=== PATIENT | male | born 1960 | race Caucasian/White ===

== ENCOUNTER 2018-05-24 08:40 | Inpatient (IN) ==
[2018-05-24 09:31] LABS: VENOUS PH 7.34 (7.32-7.42)
[2018-05-24 09:34] LABS: BASOPHILS # (AUTO) 0.06 10*3/UL; BASOPHILS % (AUTO) 0.7 % (0-1); EOSINOPHILS # (AUTO) 0.09 10*3/UL; EOSINOPHILS % (AUTO) 1.1 % (0-8); Hematocrit [HCT] 63.9 % (42.0-52.0); Hemoglobin [HGB] 19.5 g/dL (14.0-18.0); LYMPHOCYTES # (AUTO) 1.77 10*3/uL; MEAN CORPUSCULAR HEMOGLOBIN 28.1 PG (27-31); MEAN CORPUSCULAR HGB CONC 30.5 g/dL (33-37); MEAN CORPUSCULAR VOLUME 92.2 FL (80-90); MEAN PLATELET VOLUME 10.5 FL (7.4-12.2); MONOCYTES # (AUTO) 0.97 10*3/UL (0.3-0.8); MONOCYTES % (AUTO) 11.4 % (5-15); NEUTROPHILS # (AUTO) 5.63 10*3/UL; NEUTROPHILS % (AUTO) 65.9 % (50-80); RED BLOOD COUNT 6.93 10^6/uL (4.70-6.10)
[2018-05-24 09:36] LABS: PLATELET MORPHOLOGY COMMENT NORMAL MORPHOLOGY (NORM); RBC MORPHOLOGY COMMENT NORMAL MORPHOLOGY (NORM); WBC MORPHOLOGY COMMENT NORMAL MORPHOLOGY (NORM)
[2018-05-24 09:45] LABS: BLOOD UREA NITROGEN 23 mg/dL (7-22); SERUM ALBUMIN 3.3 g/dL (3.5-4.8)
--- NOTE | 2018-05-24 10:16 | DI ---
PA /LATERAL CHEST, 05/24/2018 9:25 AM : Clinical History: Dyspnea. Previous Exam: None at this facility. There is no acute soft tissue or bony abnormality. There is cardiomegaly without overt CHF. There is no acute infiltrate. There is blunting of the left costophrenic angle posteriorly and laterally eithe r representing fluid or pleural thickening. There is pulmonary arterial hypertension. Mediastinal str uctures are otherwise normal. There are no pulmonary nodules. Readin. There is no acute infiltrate. There is blunting of the left costophrenic angle either representin g fluid or pleural thickening. 2. Cardiomegaly without CHF. 3. Pulmonary arterial hypertension.
[2018-05-24 11:06] LABS: BILIRUBIN,URINE NEGATIVE (NEG); CLARITY,URINE CLEAR (CLEAR); COLOR,URINE YELLOW (Y); GLUCOSE, URINE (UA) NEGATIVE (NEG); OCCULT BLOOD,URINE NEGATIVE (NEG); PROTEIN,URINE TRACE mg/dl (NEG); UROBILINOGEN,URINE 0.2 EU/dL (0.2)
[2018-05-24 11:07] LABS: URINE SAMPLE TYPE VOIDED SPECIMEN
--- NOTE | 2018-05-24 11:33 | EKG ---
[address] [place] [address] Measurements Intervals [place] Rate: 69 P: 73 [place]: 172 QRS: -79 QRSD: 100 T: 65 QT: 391 QTc: 410 Interpretive Statements SINUS RHYTHM POSSIBLE LEFT ATRIAL ENLARGEMENT [-0.1mV P WAVE IN V1/V2] MARKED LEFT AXIS DEVIATION [QRS AXIS < -30] PATTERN CONSISTENT WITH PULMONARY DISEASE POSSIBLE INFERIOR MYOCARDIAL INFARCTION [30 ms Q WAVE IN II/aVF], OF INDETERMINATE AGE No previous ECG available for comparison Electronically Signed On 05-25-18 15:06:25 MDT by Robert Negrete MD [email or web address]
[2018-05-24] MEDS ORDERED: FUROSEMIDE 10 MG/1 ML - 4 ML IVP ONE (12:08)
[2018-05-24] MEDS ORDERED: LIDOCAINE W/ SODIUM BICARB 0.5 ML SYR SUBD PRN (13:55)
--- NOTE | 2018-05-24 13:55 | PDOC ---
HPI - History of Present Illness Date of Service: 05/24/18 Time of Service: 14:00 Chief Complaint: Shortness of breath the last 6 months worse the last few weeks , bilateral leg swelling the last 3 months worse now History of Present Illness: This is a 57 years old male with medical history significant for history of hypertension on no medication who presented to the ER with history of shortness of breath progressively getting worse the last 6 months, he did report also swelling in the legs that started about 3 months ago got progressively worse, going up to the lower part of his abdomen. Shortness of breath is related to exertion he said he walked for a short distance from the parking lot to the entrance of the hospital and he was winded. Apparently he went to the clinic few days ago because of the shortness of breath and he didn't complete the evaluation but this saturation was 72% on room air. When he came into the ER his saturation was 77% on room air. He was put on oxygen. Was found to have leg swelling he had Lasix injection and was admitted. He denied chest pain. But he did report worsening shortness of breath when he lays flat. No palpitation. No other symptoms. He did report snoring and he said he's been told in the past that he sometimes he stops breathing. Past Medical History Medical History: 1. History of hypertension who is on no medications. 2. History of hypoxia found a few days ago Surgical History: No surgeries before Pertinent Family History: Family history is positive for COPD in his mother and sister. Father had sleep apnea Past Social History: Used to smoke 2 packs a day quit 5 years ago, used to drink heavily quit about a year ago. Used to use drugs. Quit 15 years ago. Lives in [place]. Lives by himself no children. 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 Tobacco Use: Former Smoker Do you dip or chew tobacco: No In the Past 12 Months, Have Used or Abuse Any of the Following Substance: None Alcohol Use: None Medication / Allergies Home Medications: Home Medications 3 Medication Instructions Recorded Confirmed Type NK [No Home Medications Reported] 05/24/18 History Allergies/Adverse Reactions: Allergies 3 Allergy/AdvReac Type Severity Reaction Status Date / Time No Known Allergies Allergy Unverified 05/24/18 09:14 Review of Systems - Review of Systems All Systems: Reviewed & No Additional Complaints Except as Stated Exam - Vitals Vital Signs: Vital Signs Temperature 97.1 F Temperature Source Temporal Artery Scan Pulse Rate [Telemetry] 67 Respiratory Rate 20 Blood Pressure [Left Arm] 133/102 Pulse Ox 92 Oxygen Flow Rate 5 Oxygen Delivery Method Nasal Cannula Height 6 ft 2 in Weight 290 lb 1.6 oz - General General Appearance: No Acute Distress, Cooperative, Morbidly Obese - Head Head Exam: Normal Inspection - Eye Eye Exam: POSITIVE: Normal Appearance - ENT ENT Exam: POSITIVE: Normal Exam - Neck Neck Exam: Normal Inspection - Respiratory Additional Respiratory Exam Details: Very poor air entry otherwise clear - Cardiovascular Cardiovascular Exam: POSITIVE: RRR - GI/Abdominal GI/Abdominal Exam: POSITIVE: Normal Bowel Sounds, Non Tender, Non Distended, Soft, No Organomegaly Additional GI/Abdominal Exam Details: Abdominal wall edema noted - External Exam: POSITIVE: Deferred Exam: POSITIVE: Deferred - Extremities Additional Extremities Exam Details: Significant edema bilaterally noted. Somewhat worse on the left compared to the right. - Neurological Neurological Exam: POSITIVE: Alert, Oriented x 3, CN II-XII Intact, No Facial Droop, Speech Intact / Clear, Moves All Extremities Equally - Psychiatric Psychiatric Exam: POSITIVE: Normal Affect Results - Labs CBC and BMP: 05/24/18 08:50 05/24/18 08:50 - EKG Data -: EKG Interpreted by Me Rate: Normal EKG Shows Normal: Sinus Rhythm - EKG Data When Compared to Previous EKG(s) There Are: Other (EKG showed sinus rhythm, left axis deviation and incomplete right bundle. Q waves noted in the inferior leads.) - Imaging Status: Report Reviewed by Me (Chest X ray 1. There is no acute infiltrate. There is blunting of the left costophrenic angle either representing fluid or pleural thickening. 2. Cardiomegaly without CHF. 3. Pulmonary arterial hypertension.) Assessment and Plan - Patient Problems (1) Shortness of breath Current Visit: Yes Status: Acute Comment: Probably multifactorial, suspect COPD and possible sleep apnea. He is on oxygen. Will put him on Lasix drip because of significant edema. Unfortunately we cannot do an echocardiogram here I did explain that to him. We 'll see what his blood pressure response to the diuretics and then decide if he needs additional medications. Code(s): R06.02 - Shortness of breath (2) Hypoxia Current Visit: Yes Status: Acute Comment: Part is probably secondary to COPD and possible sleep apnea. He is on oxygen will put him on Spiriva and Xopenex. Code(s): R09.02 - Hypoxemia (3) Elevated d-dimer Current Visit: Yes Status: Acute Comment: I did expand him that there is minimal elevation in his d-dimer and we' ll do ultrasound of his legs to rule out DVT although it seems less likely. We did talk about doing a CAT scan of his chest he couldn't do it in the ER because he couldn't lay flat he said. Now after explanation he said he doesn't want to do it. I think it is less likely a PE looks like more other pulmonary conditions than a PE process. will Put him on prophylactic Lovenox Code(s): R79.89 - Other specified abnormal findings of blood chemistry (4) Polycythemia Current Visit: Yes Status: Acute Comment: Likely Secondary to the hypoxemia, will check the level again tomorrow and see whether he needs a phlebotomy. Code(s): D75.1 - Secondary polycythemia
--- NOTE | 2018-05-24 17:54 | DI ---
VENOUS DOPPLER ULTRASOUND OF BOTH LOWER EXTREMITIES, 05/24/2018 1:59 PM: Clinical History: Bilateral leg swelling. Previous Exam: None at this facility. Technique: 2D real-time imaging is supplemented with color Doppler ultrasound. Compression and augmen tation maneuvers were performed. The deep venous system from the groin to the popliteal fossa for both legs is normal. The greater sap henous veins are also normal. There is edema in the subcutaneous fat in both lower legs with small am ounts of fluid in the fat as well as in the potential space between the subcutaneous fat in the right tibialis anterior muscle. Reading: Negative venous Doppler ultrasound of both lower extremities for deep vein thrombosis.
[2018-05-24] MEDS ORDERED: ALBUTEROL SULFATE 8.5 GM HFA INHALER INH SCH (19:00)
[2018-05-24] MEDS: LEVALBUTEROL HCL 0.63 MG/3 ML NEB SCH (19:06)
[2018-05-25] MEDS: LEVALBUTEROL HCL 0.63 MG/3 ML NEB SCH ×4 (00:57→19:54)
[2018-05-25 04:52] LABS: VENOUS PH 7.34 (7.32-7.42)
[2018-05-25 05:12] LABS: BASOPHILS # (AUTO) 0.04 10*3/UL; BASOPHILS % (AUTO) 0.4 % (0-1); EOSINOPHILS # (AUTO) 0.19 10*3/UL; EOSINOPHILS % (AUTO) 1.9 % (0-8); Hemoglobin [HGB] 18.6 g/dL (14.0-18.0); LYMPHOCYTES # (AUTO) 1.73 10*3/uL; MEAN CORPUSCULAR VOLUME 93.4 FL (80-90); MONOCYTES # (AUTO) 1.43 10*3/UL (0.3-0.8); MONOCYTES % (AUTO) 14.3 % (5-15); NEUTROPHILS # (AUTO) 6.62 10*3/UL; RED BLOOD COUNT 6.65 10^6/uL (4.70-6.10)
[2018-05-25 05:15] LABS: BLOOD UREA NITROGEN 22 mg/dL (7-22)
--- NOTE | 2018-05-25 05:34 | PDOC ---
Dyspnea HPI - General Chief Complaint: Dyspnea Stated Complaint: SOB Date Seen by Provider: 05/24/18 Time Seen by Provider: 09:10 Source: POSITIVE: Patient Exam Limitations: POSITIVE: No limitations Treatment Prior to Arrival: REPORTS: None Nurse's Notes Reviewed & Considered: Yes - History of Present Illness Initial Comments: The patient is a 57-year-old male who presents to the emergency room with a 2 week history of progressive dyspnea. He has prominent dyspnea on exertion and also some orthopnea. He also complains of progressive bilateral pitting pedal edema past 6 months. Patient is on no medications. He is not on oxygen at home. He smoked for 40 years and quit 6 years ago. He still chews tobacco. He also has a history of alcohol abuse and states that he drank about a sixpack of beer and a half a pint of hard liquor daily up until 6 months ago. He denies any fevers. No cough. No chest pain. No GI or symptoms. He thinks his abdominal girth is increasing. No extremity pain. Body Location Affected: REPORTS: Lower Extremity (L) (Pedal edema), Lower Extremity (R) (Pedal edema), Chest (Dyspnea) Timing: REPORTS: Gradual, Getting Worse Duration: >1 week (Progressive dyspnea for 2 weeks and progressive pedal edema for 6 months) Quality: REPORTS: Other (Patient denies any pain anywhere, although he does state he has some discomfort to the abdomen because he thinks his abdomen is "swelling".) Initiating Event: REPORTS: Exercise Context: REPORTS: Other (Dyspnea worse with exertion and with lying flat) Exacerbated By: REPORTS: Exertion, Laying Flat Associated Symptoms: REPORTS: Leg Swelling (Bilateral pitting pedal edema). DENIES: Fever, Chills, Sweating, Chest Pain, Chest Discomfort, Left Chest, Right Chest, Central Chest, Chest Heaviness, Chest Tightness, Painful Breathing , Radiation to Back, Radiation to Jaw, Radiation to Arm, Bloody Cough, Productive Cough, Heart Racing, Leg Pain, Calf Pain, Ankle Swelling, Dizziness, Light-Headedness, Anxiety, Tingling - Hands, Tingling - Face, Muscle Spasms - Hands, Muscle Spasms - Feet Similar Symptoms Previously: No Recently seen/treated/hospitalized: No Any Prior Injuries Related to Current Complaint?: No - Patient Home Medications Home Medications: Home Medications NK [No Home Medications Reported] 05/24/18 - Patient Allergies Allergies/Adverse Reactions: Allergies 3 Allergy/AdvReac Type Severity Reaction Status Date / Time No Known Allergies Allergy Verified 05/24/18 18:29 Past Medical History - heen HEENT History: Denies History Cardiovascular History: Denies History Respiratory History: Denies History Gastrointestinal History: Denies History Genitourinary History: Denies History Endocrine History: Denies History Musculoskeletal History: Denies History Neurological History: Denies History Blood Disorders: Denies History Psychiatric History: Denies History Male Reproductive History: Denies History Cancer History: Denies History In Past Year Been Physically Harmed or Verbally Threatened: No History of MDRO: No Tobacco Use: Former Smoker In the Past 12 Months, Have Used or Abuse Any Substance: None Previous Surgical History: No Family History of Malignant Hyperthermia: No Significant Family History: Asthma, Heart disease, COPD, Hypertension, Lung disease Past Medical History Reviewed: Reviewed - No Changes ROS - Limitations ROS Limitations: No Limitations Constitution: REPORTS: Weakness Cardiovascular: REPORTS: Denies Cardiac Symptoms Respiratory: REPORTS: Shortness Of Breath Neurological: REPORTS: Denies Neuro Symptoms Gastrointestinal: REPORTS: Denies GI Symptoms Endocrine: REPORTS: Denies Symptoms Musculoskeletal: REPORTS: Denies MS Symptoms Genitourinary: REPORTS: Denies Symptoms Eyes: REPORTS: Denies Symptoms ENT: REPORTS: Denies Symptoms Skin: REPORTS: Denies Skin Symptoms Lympathic: REPORTS: Denies Lympathic Symptoms Immunologic: POSITIVE: Denies Symptoms Psychiatric: POSITIVE: Denies Psych Symptoms Dyspnea Physical Exam - General Appearance General Appearance: REPORTS: Alert, Cooperative, No Acute Distress, No Evidence of Trauma, Other (Obese) - HEENT HEENT: POSITIVE: Head Inspection Nml, Eyes Inspection Nml, Ears Inspection Nml, Nose Inspection Nml, Oral/Dental Inspect. Nml, Pharynx Inspect. Nml, PERRL, EOMI - Neck Neck: REPORTS: Normal Inspection, No Carotid Bruit - Respiratory Respiratory: REPORTS: No Pleuritic Chest Pain, Speaks Full Sentences, No Pain on Inspiration, Respiratory Distress (Mild), Rales, See Diagram. DENIES: No Respiratory Distress (SaO2 77% on room air; 94% on 4 L), Breath Sounds Normal ( Some mild rhonchi both lung bases), Fatigue, Wheezes, Rhonchi, Prolonged Expirations, Accessory Muscle Use, Retractions, Splinting, Dull on Percussion, Decreased Air Movement, Chest Wall Tenderness, Speaks Broken Sentences, Stridor - Cardiovascular Cardiovascular: REPORTS: Regular Rate and Rhythm, Heart Sounds Normal, Equal Pulses, Strong Pulses, No Murmur, No Gallop, No Friction Rub, No JVD Peripheral Pulses: Radial (R): 2+, Radial (L): 2+, Dorsalis-pedis (R): 2+, Dorsalis-pedis (L): 2+ - Abdomen Abdomen: Soft: (All Quadrants), Normal Bowel Sounds: (All Quadrants), Denies Tenderness: (All Quadrants), No Splenomegaly: (All Quadrants), No Hepatomegaly: (All Quadrants), No Guarding: (All Quadrants), No Rebound: (All Quadrants), No Palpable Pulse: (All Quadrants), No Palpabale Mass: (All Quadrants), No Rigidity : (All Quadrants) Additional Abdominal Details: Abdominal examination shows bowel sounds to be active. Abdomen does appear to be somewhat distended, and the patient reports gradual abdominal distention. Abdomen is nontender and there is no masses, organomegaly or rebound. Suspect anasarca. - Skin Skin: REPORTS: Intact, Normal For Race, Warm, Dry, No Rash - Extremities Extremity: Non-Tender: (All Extremities), Normal ROM: (All Extremities), Normal Inspection: (All Extremities), Pelvis Stable: (All Extremities), Normal Tendon Exam: (All Extremities), Edema / Swelling: (RLE), (LLE) Additional Extremities Details: Symmetrical bilateral pitting pedal edema - Neurological / Psychological Neurological: POSITIVE: Affect Apporpriate, Oriented X3, suture winder hand Normal As Tested, Motor Normal, Sensation Normal Images - Complete Complete: 1 - Pitting edema Dyspnea Progress - Results Reviewed by me Xrays/CTs/US Reviewed by me: Yes Discussed with Radiologist: Yes Radiology Findings: Radiologist reads chest x-ray is showing "no acute infiltrates; blunting of left costophrenic angle; cardiomegaly; pulmonary arterial hypertension Lab Results Reviewed by Me: Yes (VBG shows pH 7.33, PCO2 69.3) CBC and BMP: 05/24/18 08:50 05/24/18 08:50 Lab Results:: Laboratory Results 3 05/24/18 05/24/18 05/24/18 08:50 08:50 08:50 WBC 8.53 RBC 6.93 H Hgb 19.5 H Hct 63.9 H MCV 92.2 H MCH 28.1 MCHC 30.5 L RDW Std Deviation 61.2 H RDW Coeff of Radha 18.7 H Plt Count 222 MPV 10.5 Immature Gran % (Auto) 0.1 Neut % (Auto) 65.9 Lymph % (Auto) 20.8 [place] % (Auto) 11.4 Eos % (Auto) 1.1 Baso % (Auto) 0.7 Immature Gran # (Auto) 0.01 Neut # (Auto) 5.63 Lymph # (Auto) 1.77 [place] # (Auto) 0.97 H Eos # (Auto) 0.09 Baso # (Auto) 0.06 WBC Morphology Comment Normal morphology Plt Morphology Comment Normal morphology RBC Morph Comment Normal morphology D-Dimer 0.96 H VBG pH 7.34 VBG pCO2 69 H VBG HCO3 37 H VBG Base Excess 11 H Sodium Potassium Chloride Carbon Dioxide Anion Gap BUN Creatinine Estimated GFR BUN/Creatinine Ratio Glucose Calculated Osmolality Lactic Acid Calcium Magnesium Total Bilirubin AST ALT Alkaline Phosphatase Total Creatine Kinase CK-MB (CK-2) Troponin I NT-Pro-B Natriuret Pep Total Protein Albumin Globulin Albumin/Globulin Ratio Ur Collection Type Urine Color Urine Clarity Urine pH Ur Specific [place] Urine Protein Urine Glucose (UA) Urine Ketones Urine Occult Blood Urine Nitrate Urine Bilirubin Urine Urobilinogen Ur Leukocyte Esterase Ur Culture Indicated? 3 05/24/18 05/24/18 05/24/18 08:50 08:50 08:50 WBC RBC Hgb Hct MCV MCH MCHC RDW Std Deviation RDW Coeff of Radha Plt Count MPV Immature Gran % (Auto) Neut % (Auto) Lymph % (Auto) [place] % (Auto) Eos % (Auto) Baso % (Auto) Immature Gran # (Auto) Neut # (Auto) Lymph # (Auto) [place] # (Auto) Eos # (Auto) Baso # (Auto) WBC Morphology Comment Plt Morphology Comment RBC Morph Comment D-Dimer VBG pH VBG pCO2 VBG HCO3 VBG Base Excess Sodium 143 Potassium 4.8 Chloride 102 Carbon Dioxide 31 Anion Gap 10 BUN 23 H Creatinine 1.0 Estimated GFR > 60 BUN/Creatinine Ratio 23.00 H Glucose 94 Calculated Osmolality 299.0 H Lactic Acid 1.0 Calcium 8.6 L Magnesium 2.0 Total Bilirubin 1.0 AST 49 ALT 40 Alkaline Phosphatase 89 Total Creatine Kinase 67 CK-MB (CK-2) 5.03 H Troponin I < 0.012 NT-Pro-B Natriuret Pep 1180 H Total Protein 5.9 L Albumin 3.3 L Globulin 2.6 Albumin/Globulin Ratio 1.20 L Ur Collection Type Urine Color Urine Clarity Urine pH Ur Specific [place] Urine Protein Urine Glucose (UA) Urine Ketones Urine Occult Blood Urine Nitrate Urine Bilirubin Urine Urobilinogen Ur Leukocyte Esterase Ur Culture Indicated? 3 05/24/18 11:00 WBC RBC Hgb Hct MCV MCH MCHC RDW Std Deviation RDW Coeff of Radha Plt Count MPV Immature Gran % (Auto) Neut % (Auto) Lymph % (Auto) [place] % (Auto) Eos % (Auto) Baso % (Auto) Immature Gran # (Auto) Neut # (Auto) Lymph # (Auto) [place] # (Auto) Eos # (Auto) Baso # (Auto) WBC Morphology Comment Plt Morphology Comment RBC Morph Comment D-Dimer VBG pH VBG pCO2 VBG HCO3 VBG Base Excess Sodium Potassium Chloride Carbon Dioxide Anion Gap BUN Creatinine Estimated GFR BUN/Creatinine Ratio Glucose Calculated Osmolality Lactic Acid Calcium Magnesium Total Bilirubin AST ALT Alkaline Phosphatase Total Creatine Kinase CK-MB (CK-2) Troponin I NT-Pro-B Natriuret Pep Total Protein Albumin Globulin Albumin/Globulin Ratio Ur Collection Type Voided specimen Urine Color Yellow Urine Clarity Clear Urine pH 5.0 Ur Specific [place] 1.015 Urine Protein Trace Urine Glucose (UA) Negative Urine Ketones Negative Urine Occult Blood Negative Urine Nitrate Negative Urine Bilirubin Negative Urine Urobilinogen 0.2 Ur Leukocyte Esterase Negative Ur Culture Indicated? Culture not set EKG Interpreted/Reviewed By Me:: Yes (Q waves in leads 3 and aVF) EKG Interpretation:: POSITIVE: Normal Sinus Rhythm, Normal Rate, Normal Intervals, Normal [place], Normal ST/T, Abnormal EKG. NEGATIVE: Normal QRS (Q waves in leads 3 and aVF) - Patient's Progress Pain Medication Addressed: POSITIVE: Not Applicable School/Work Release Addressed: POSITIVE: Not Applicable Re-Examine Time: 12:00 Re-Examine Comment: Laboratory and radiologic studies discussed with patient. Patient has polycythemia and probably anasarca and congestive heart failure. He also probably has pulmonary artery hypertension. He has carbon dioxide retention with hypoxia on room air. Re-Examine Time:: 12:15 Re-Examine Comment: Case discussed with joint creaser telephone information supervisor, Dr. Sotelo and patient is admitted to Dr. Sotelo for further evaluation and treatment. Patient given 40 mg of Lasix IV. Status: POSITIVE: Unchanged, Re-Examined Air Movement: POSITIVE: Fair - Consult Consult (If Yes, Name of Consulting MD & Time Called): Yes (Dr. Sotelo, [id number], hospitalist) Consulting MD will see pt:: POSITIVE: [facility] Admit Counseled: POSITIVE: Patient, RE: Lab Results, RE: Radiology Results, RE: DX, RE : Need for F/U Patient Care Time - Estimated PCT Patient Care Time (In Minutes): 60 Vital Signs - Recent Vital Signs Vital Signs: Vital Signs (Last 8 hours) Temp Pulse Pulse Pulse Resp BP Pulse Ox 05/25/18 05:17 92 05/25/18 04:09 97.8 F 78 20 128/78 90 05/25/18 03:00 76 92 05/25/18 01:00 98.2 F 77 77 18 130/76 91 05/25/18 00:59 91 05/25/18 00:58 22 05/25/18 00:57 75 24 91 05/24/18 23:00 92 - VS Reviewed Vital Signs Reviewed: Yes Discharge Clinical Impression: COPD (chronic obstructive pulmonary disease), Polycythemia, CHF (congestive heart failure), Anasarca Discharge Disposition: Admit to Inpatient Condition: Fair Date Decision to Admit to Inpatient: 05/24/18 Time Decision to Admit to Inpatient: 12:00
[2018-05-25 05:41] LABS: Hematocrit [HCT] 61.2 % (42.0-52.0); PLATELET MORPHOLOGY COMMENT NORMAL MORPHOLOGY (NORM); RBC MORPHOLOGY COMMENT NORMAL MORPHOLOGY (NORM); WBC MORPHOLOGY COMMENT NORMAL MORPHOLOGY (NORM)
[2018-05-25] MEDS ORDERED: TIOTROPIUM BROMIDE 18 MCG CAPSULE INH SCH (07:00)
[2018-05-25] MEDS: ENOXAPARIN SODIUM 40 MG/0.4 ML SYRINGE SUBCUT SCH (08:44)
[2018-05-25] MEDS ORDERED: LORATADINE 10 MG TABLET PO ONE (19:42)
--- NOTE | 2018-05-25 19:42 | PDOC(PROG) ---
Date and Time of Service: 05/25/2018, 1935 Interval History: No chest pains, less short of breath. Feels much better than he did yesterday and lost about 14 pounds with diuresis overnight. I's and O's were not recorded overnight. He is very reluctant for different therapies due to his concern over cost. He feels like he could even be dying. Refused CT scan after 2 attempts at 18-gauge INT placement into the antecubital fossa failed. Objective : Data - Labs CBC and BMP: 05/25/18 04:30 05/25/18 04:30 Objective : Exam - General General Appearance: No Acute Distress Additional General Exam Details: Vital Signs - Last Taken Temperature 97.2 F 05/25/18 16:07 Pulse Rate 81 05/25/18 16:07 Respiratory Rate 18 05/25/18 16:07 Blood Pressure 128/79 05/25/18 16:07 Pulse Ox 90 05/25/18 16:07 Not always cooperative with therapy, frequently refusing medications including inhaling therapies, diagnostic workup as well is being refused. - Eye Eye Exam: No Scleral Icterus - ENT ENT Exam: Mucous Membranes Moist - Respiratory Respiratory Exam: Breathing Non Labored, Decreased Breath Sounds - Cardiovascular Cardiovascular Exam: RRR, No Murmur, No Clicks, No Gallops, No Rubs, No JVD - GI/Abdominal GI/Abdominal Exam: Normal Bowel Sounds, Non Tender, Non Distended, Soft Additional GI/Abdominal Exam Details: Has pitting edema on the abdominal wall - Extremities Extremities Exam: No Cyanosis Present, Clubbing Present (In the digits in the upper extremities), +3 Edema - Neurological Neurological Exam: Alert, Oriented x 3, No Facial Droop, Speech Intact / Clear, Moves All Extremities Equally - Psychiatric Psychiatric Exam: Normal Affect, Anxious Assessment and Plan - Patient Problems (1) Anasarca Current Visit: Yes Status: Acute Code(s): R60.1 - Generalized edema (2) Cor pulmonale, acute Current Visit: Yes Status: Acute Code(s): I26.09 - Other pulmonary embolism with acute cor pulmonale (3) Polycythemia Current Visit: Yes Status: Acute Code(s): D75.1 - Secondary polycythemia (4) Shortness of breath Current Visit: Yes Status: Acute Code(s): R06.02 - Shortness of breath (5) Hypoxia Current Visit: Yes Status: Acute Code(s): R09.02 - Hypoxemia (6) Elevated d-dimer Current Visit: Yes Status: Acute Code(s): R79.89 - Other specified abnormal findings of blood chemistry - Assessment / Plan Additional Assessment/Plan Details: This is a very difficult situation. The patient clinically has cor pulmonale, acute, and probably chronic right congestive heart failure. This could be from venous thromboembolism disease, but he refuses CT scan workup due to cost and then due to failed attempts at IV placement for study when he finally did agree to do it. He might be agreeable to trying another attempt at IV access tomorrow to do the study. We'll continue Lasix drip tonight, and potassium. It may be that tomorrow, based on how much fluid I can get off, we may need to resort to placing the patient on a when necessary regimen as he has very apt to leave AGAINST MEDICAL ADVICE should he not be discharged tomorrow. I think he would benefit from continued outpatient workup. For the polycythemia, the patient really should have laboratory data to make sure he does not have polycythemia rubra vera, in addition I will add medications for pruritus, and I think the patient needs phlebotomy and probably needs repeat CBC sees on either a monthly basis or biweekly basis until the hematocrit is at a more manageable range. Risks for stroke. I'm placing him on aspirin as well. I will recommend to him that he should see a promotions executive producer post hospital stay but we will see if he will be compliant with that. Probably needs an outpatient sleep study but I doubt he will comply. Case management working to help patient to establish Medicaid if possible. Very complex situation, overall I think prognosis will be very poor. Particularly if the Patient cannot comply with continued workup as I think his cor pulmonale is probably very advanced.
[2018-05-25] MEDS ORDERED: HYDROcodone-APAP 5 MG -325 MG TABLET PO PRN (19:43)
[2018-05-25] MEDS ORDERED: POTASSIUM CHLORIDE 20 MEQ TAB PO ONE (19:43)
[2018-05-25] MEDS ORDERED: ENALAPRIL 10 MG TABLET PO ONE (19:44)
[2018-05-26] MEDS ORDERED: FUROSEMIDE 40 MG TABLET PO SCH (07:00)
[2018-05-26 07:50] VITALS: RESP 18
[2018-05-26] MEDS ORDERED: POTASSIUM CHLORIDE 20 MEQ TAB PO SCH (09:00)
[2018-05-26] MEDS ORDERED: ENALAPRIL 10 MG TABLET PO SCH (09:00)
[2018-05-26] MEDS ORDERED: LORATADINE 10 MG TABLET PO SCH (09:00)
[2018-05-26] MEDS ORDERED: ASPIRIN EC 81 MG TABLET PO SCH (09:00)
[2018-05-26] MEDS: ENOXAPARIN SODIUM 40 MG/0.4 ML SYRINGE SUBCUT SCH (09:03)
[2018-05-26 11:29] VITALS: O2SAT 91
[2018-05-26 12:11] VITALS: BP 109/66; TEMP 97.5
--- NOTE | 2018-05-26 13:05 | DCSUMMARY ---
Hospitalization Summary Admit Date: 05/25/2018 Discharge Date: 05/26/18 Primary Diagnosis:: acute on chronic cor pulmonale Secondary Diagnosis:: [facility] Hospital Course: This is a 57-year-old male who presented with increased swelling and shortness of breath. He was found to be in total body anasarca, and had signs and symptoms consistent with right congestive heart failure and cor pulmonale. He refuses several workups, including a CTA of the chest and VQ scan to look for pulmonary emboli. He refused to remain on the Lasix drip indefinitely and asked he stopped his own pump. He chewed tobacco while he was in the hospital and was fairly noncompliant. Ultimately I was able to convince the patient that he should probably go on some diuretics and dose of enalapril daily and go on oxygen. I could not convince him to do a sleep study. With diuresis, we do not the patient down from 290 pounds to 264 pounds in 2 days. His edema has significantly improved and his symptoms have improved greatly and he is not as short of breath as he was on admission. The patient also has polycythemia. I think he would benefit from therapeutic phlebotomies. We did send a erythropoetin and a Jak2 mutation study off in case this might be polycythemia rubra vera. He does not smoke so he is probably not polycythemic from that. Probably this is from hypoxia with cor pulmonale, probable obstructive sleep apnea, and not known if he has underlying thromboembolism disease. Patient today states that he wants to go. He feels better in terms shortness breath denies chest pain, complained of leg cramps that do feel better today. He refuses several segments of his workup due to cost and therapy as well. I did well he would be willing to do to try and help treat his condition overall as discussed above. Assessment and Plan: 1. As per discharge assessments noted 2. Disposition: Patient is discharged home. 3. Condition on discharge, stable and improved. Complex to determine prognosis as patient was very reluctant for additional workup and therapy. 4. Diet: regular diet 5. Activities: resume normal activities with the exceptions of chewing tobacco. I also recommended continuous oxygen 6. Follow-Up: 1. We arrange for patient to see Dr. Melgar in about 10 days to review the above issues. 2. Basic metabolic panel on the eighth 7. Medications at the Time of Discharge: Home Medications 3 Medication Instructions Recorded Confirmed Type Aspirin/Calcium Carbonate/Mag 325 mg PO DAILY #180 tab 05/26/18 Rx [Aspirin Buffered 325 Mg Tab] Enalapril Maleate [Vasotec] 5 mg PO DAILY #30 tab 05/26/18 Rx Furosemide [Lasix] 40 mg PO BID@0700,1300 #60 tab 05/26/18 Rx Loratadine [Claritin] 10 mg PO DAILY #30 tab 05/26/18 Rx Potassium Chloride [Klor-Con] 20 meq PO DAILY #30 tab 05/26/18 Rx 8. Time, care, counseling and coordination of care for this discharge is greater than 30 minutes. Exam - Vitals Vital Signs: Vital Signs Temperature 97.5 F Temperature Source Temporal Artery Scan Pulse Rate [Pulse Oximeter] 75 Pulse Rate [Telemetry] 77 Pulse Rate 85 Respiratory Rate 18 Blood Pressure [Right Arm] 109/66 Blood Pressure [Left Arm] 128/79 Pulse Ox 91 Oxygen Flow Rate 8 Oxygen Delivery Method Nasal Cannula Height 6 ft 2 in Weight 264 lb 3.2 oz - General General Appearance: No Acute Distress, Cooperative - Eye Eye Exam: POSITIVE: No Scleral Icterus - Respiratory Respiratory Exam: POSITIVE: Clear to Auscultation - Bilaterally, Breathing Non Labored - Cardiovascular Cardiovascular Exam: POSITIVE: RRR, No Murmur, No Clicks, No Gallops, No Rubs, No JVD - GI/Abdominal GI/Abdominal Exam: POSITIVE: Normal Bowel Sounds, Non Tender, Non Distended, Soft Additional GI/Abdominal Exam Details: Significantly less edema in abdominal wall - Extremities Extremities Exam: POSITIVE: No Cyanosis Present, Clubbing Present, +2 Edema ( Improved) - Neurological Neurological Exam: POSITIVE: Alert, Oriented x 3, No Facial Droop, Speech Intact / Clear, Moves All Extremities Equally Data Peritnent Studies: 05/24/18 05/24/18 05/25/18 08:50 08:50 04:30 WBC 10.03 Hgb 18.6 H Hct 61.2 H Plt Count 202 VBG pH VBG pCO2 VBG HCO3 VBG Base Excess Sodium Potassium Chloride Carbon Dioxide Anion Gap BUN Creatinine Estimated GFR BUN/Creatinine Ratio Glucose Calculated Osmolality Calcium Troponin I < 0.012 NT-Pro-B Natriuret Pep 1180 H 05/25/18 05/25/18 04:30 04:39 WBC Hgb Hct Plt Count VBG pH 7.34 VBG pCO2 78 H VBG HCO3 42 H VBG Base Excess 16 H Sodium 144 Potassium 3.8 Chloride 92 L Carbon Dioxide 42 H Anion Gap 10 BUN 22 Creatinine 1.0 Estimated GFR > 60 BUN/Creatinine Ratio 22.00 H Glucose 91 Calculated Osmolality 300.0 H Calcium 8.2 L Troponin I NT-Pro-B Natriuret Pep Patient Problems - Patient Problem List (1) Cor pulmonale, acute Current Visit: Yes Status: Acute Code(s): I26.09 - Other pulmonary embolism with acute cor pulmonale Category: Medical (2) Anasarca Current Visit: Yes Status: Acute Code(s): R60.1 - Generalized edema Category: Medical (3) Polycythemia Current Visit: Yes Status: Acute Code(s): D75.1 - Secondary polycythemia Category: Medical (4) Shortness of breath Current Visit: Yes Status: Acute Code(s): R06.02 - Shortness of breath Category: Medical (5) Hypoxia Current Visit: Yes Status: Acute Code(s): R09.02 - Hypoxemia Category: Medical (6) Elevated d-dimer Current Visit: Yes Status: Acute Code(s): R79.89 - Other specified abnormal findings of blood chemistry Category: Medical (7) Chronic cor pulmonale Current Visit: Yes Status: Acute Code(s): I27.81 - Cor pulmonale (chronic) Category: Medical
[2018-05-31 08:55] LABS: JAK2 RESULT see interpretation
--- NOTE | 2018-07-07 11:44 | PDOC(PROG) ---
General Note Progress Note: The patient called the medical office building today demanding refills on his medications. He could not recall that he was on Lasix, lisinopril, and an aspirin at the time of discharge. He has not complied with follow-up instructions to obtain laboratory such as basic metabolic panel to check electrolytes and potassium on these medications, and therefore at this point in time they cannot be filled as it could put him at risk of kidney dysfunction and abnormal potassium. He really needs labs prior to these medications being refilled. I tried to call his phone number [phone], but there is no answer and it goes straight to voicemail. Patient Problems - Patient Problem List (1) Cor pulmonale, acute Status: Acute Code(s): I26.09 - Other pulmonary embolism with acute cor pulmonale Category: Medical (2) Anasarca Status: Acute Code(s): R60.1 - Generalized edema Category: Medical (3) Polycythemia Status: Acute Code(s): D75.1 - Secondary polycythemia Category: Medical (4) Shortness of breath Status: Acute Code(s): R06.02 - Shortness of breath Category: Medical (5) Hypoxia Status: Acute Code(s): R09.02 - Hypoxemia Category: Medical (6) Elevated d-dimer Status: Acute Code(s): R79.89 - Other specified abnormal findings of blood chemistry Category: Medical (7) Chronic cor pulmonale Status: Acute Code(s): I27.81 - Cor pulmonale (chronic) Category: Medical
== END 2018-05-26 14:01 | disposition home or self-care (01) | DRG 175 ==
LOC: ER 08:40 → MED/SURG 13:19
PROVIDERS: ADMIT Internal Medicine; ATTEND Internal Medicine